=== PATIENT | female | born 1990 | race Caucasian/White ===

== ENCOUNTER 2019-01-04 19:24 | Inpatient (IN) | payer MEDICAID ==
[~2019-01-04] VITALS: Ht 175.3 cm; Wt 110.0 kg
--- NOTE | ~2019-01-04 | OP ---
PATIENT NAME: NEREIDA LENZ MEDICAL RECORD: [id number] :89 LOCATION:[facility].1274 ADMISSION DATE:01/04/19 SURGEON: CANDICE KHAN DO DATE OF OPERATION: 01/06/2019 PREOPERATIVE DIAGNOSIS: Nonreassuring heart tracing. POSTOPERATIVE DIAGNOSIS: Nonreassuring heart tracing. PRIMARY SURGEON: Candice Khan DO ANESTHESIA: Jeffery ALEX [place] PROCEDURE: Primary low transverse section via Pfannenstiel incision. FINDINGS: Viable male , weight 8 pounds 12 ounces, Apgars 8 and 9, born at 9:23 a.m. Normal-appearing uterus, bilateral fallopian tubes, and bilateral ovaries. SPECIMENS: Placenta and cord. ESTIMATED BLOOD LOSS: 800 cc. IV fluids: 1200 cc. URINE OUTPUT: 175 cc clear/dark urine. COMPLICATIONS: None. CONDITION: Stable. DESCRIPTION OF PROCEDURE: The risks, benefits, alternatives, and indications of the procedure were discussed with the patient. She voiced understanding of the procedure and wished to proceed. She was taken to the OR, where spinal anesthesia was administered and found to be adequate. She was placed in the dorsal supine position with leftward tilt. She was prepped and draped in the normal sterile fashion. Pfannenstiel skin incision was made with the scalpel and brought down to the underlying layer of the fascia with a scalpel. The fascia was incised in the midline and extended laterally. The fascia was bluntly dissected off the rectus muscle superiorly and inferiorly. The rectus muscle was in the midline down to the level of the peritoneum. The peritoneum was identified and noted to be free of adherent bowel and entered bluntly. Peritoneum was further with gentle traction. The bladder blade was inserted. The uterus was incised in a transverse fashion in lower uterine segment. The incision was extended with cephalad caudad traction. The 's head was brought to the incision. The delivered without difficulty. Mouth and nose were suctioned. Cord was clamped and cut, and the was handed off to waiting pediatricians. The placenta was manually removed. The uterus was exteriorized and a moist lap was used to assure complete removal of placenta membranes. The hysterotomy was closed with 0 Vicryl in a running locked fashion with good hemostasis noted. Uterus, tubes, and ovaries were noted to be normal and returned back to the abdominal cavity. A moist laparotomy sponge was used to assure complete removal of blood clots and fluid from the abdominal cavity. The hysterotomy was reinspected and noted to be hemostatic. The rectus muscle was closed with 2-0 Monocryl in a running OPERATIVE REPORT [id number] YOANNA,NEREIDA fashion with good hemostasis. The fascial incision was closed with 0 Vicryl in a running fashion with good hemostasis. The subcutaneous fat was closed with 2-0 plain in a running fashion with good hemostasis. The skin was closed in a subcuticular fashion with 3-0 Monocryl and Dermabond dressing. All needle, lap, sponge, and instrument counts were correct times 2. The patient tolerated the procedure well. She was taken to recovery room in stable condition. TRANSINT:[id number] Voice Confirmation ID: [id number] DOCUMENT ID: [id number] CANDICE KHAN DO CC: [id number] DICTATION DATE: 01/06/19 1016 DRILL OPERATOR PNEUMATIC: 01/06/19 1324 ADM IN [facility] [address] [id number]
[2019-01-04 20:19] LABS: HEMATOCRIT 37.3 % (42.0-54.0); HEMOGLOBIN 12.9 g/dL (13.5-17.5); MCH 30.2 pg (26.0-34.0); MCHC 34.6 g/dL (31.0-37.0); MCV 87.4 fL (80.0-100.0); MEAN PLATELET VOLUME 11.4 fL (7.4-10.4); RBC 4.27 10x6/uL (4.20-6.10); RDW 14.4 % (11.5-14.5); WBC 9.7 10x3/uL (4.8-10.8)
[2019-01-04 20:23] VITALS: BP 116/75; Ht 175.3 cm; Wt 110.0 kg
[2019-01-04 21:37] LABS: APPEARANCE CLEAR (CLEAR); BILIRUBIN NEGATIVE (NEGATIVE); COLOR YELLOW (YELLOW); GLUCOSE NEGATIVE (NEGATIVE); KETONE NEGATIVE (NEGATIVE); NITRITE NEGATIVE (NEGATIVE); PROTEIN NEGATIVE (NEGATIVE); SPECIFIC GRAVITY 1.025 (1.005-1.020); UROBILINOGEN NORMAL (NORMAL)
[2019-01-04 21:44] LABS: UDS - AMPHET NEGATIVE QUAL (NEGATIVE); UDS - BARB NEGATIVE QUAL (NEGATIVE); UDS - BENZO NEGATIVE QUAL (NEGATIVE); UDS - COCAINE NEGATIVE QUAL (NEGATIVE); UDS - OPIATE NEGATIVE QUAL (NEGATIVE); UDS - PCP NEGATIVE QUAL (NEGATIVE); UDS - THC POSITIVE QUAL (NEGATIVE)
[2019-01-06 07:13] LABS: RAPID PLASMA REAGIN Non Reactive (Non Reactive)
--- NOTE | 2019-01-06 10:40 | NUR ---
SEE PAPER CHART FOR ALL POST-OP VITALS FOR THIS SHIFT.
--- NOTE | 2019-01-06 10:40 | NUR ---
PT RCVD VIA BED TO ROOM 1274 FROM RECOVERY. PT AAOx3, RATES PAIN APPROX 5-6 AT THIS TIME. PITOCIN INFUSING ORDERED TO PT'S RIGHT HAND PIV. LARGE OCCLUSIVE DRESSING OVER LOW TRANSVERSE INCISION IS C/D/I. FF, ML, U/1. SMALL RUBRA LOCHIA NOTED TO PERIPAD, NO CLOTS. PERIPAD CHANGED. MADRID CATH DRAINING DARK YELLOW URINE TO BEDSIDE DRAINAGE, 100ML EMPTIED FROM UROMETER. PT DENIES NAUSEA, GIVEN LARGE ICE WATER AND ENCOURAGED TO DRINK. ICE PACK TO INCISION SITE. SCD'S ON LE BILAT AND ON PUMP. PT INSTRUCTED ON USE OF INCENTIVE SPIROMETER/COUGH AND DEEP BREATHING. RETURN DEMONSTRATES x 3 WITH GOOD EFFORT. PT ENCOURAGED. PT REQUESTING "SOMETHING FOR PAIN SOON." WILL ADMIN ORDERED. SRUx2, CL IN REACH.
[2019-01-06 10:42] VITALS: BP 121/81
--- NOTE | 2019-01-06 11:20 | NUR ---
THIS RN TO ROOM FOR PT CHECK. PT SITTING UP IN BED, SIPPING ICE WATER. PT HAS QUESTIONS ABOUT , INSTRUCTED ON SUPPLY AND DEMAND, AND BURPING . UNDERSTANDING VERBALIZED, PT STATES SHE MAY OFFER OPPOSITE BREAST AFTER FAMILY MEMBER IS FINISHED HOLDING . PT DENIES NEEDS. SRUx2, CL IN REACH. SIG OTHER AT BEDSIDE.
--- NOTE | 2019-01-06 11:45 | NUR ---
THIS RN TO ROOM FOR FUNDAL CHECK. FF, ML, U/1. SMALL RUBRA LOCHIA, NO CLOTS. PT REQUESTING PAIN MEDICATION AND WATER, RATES PAIN 7/10 AT INCISION. WILL ADMIN ORDERED.
--- NOTE | 2019-01-06 13:30 | NUR ---
THIS RN TO ROOM FOR PT CHECK. PT C/O PAIN NOT RELIEVED WITH PREV DOSE OF MORPHINE, STATES IT "NEVER GOT BELOW A 6 OR 7" ON A PAIN SCALE. WILL NOTIFY
--- NOTE | 2019-01-06 13:49 | NUR ---
DR HILL PHONED AND REPORT GIVEN ON PT C/O UNRELIEVED PAIN AFTER RECEIVING 4MG MORPHINE IV. ORDER RCVD TO ADMIN 2MG MORPHINE NOW, AND PT MAY HAVE 6MG MORPHINE Q4H PRN PAIN RATED 7-10 NOW INSTEAD OF PREVIOUSLY ORDERED 4MG DOSE, TO BE TIMED FROM FIRST 4MG DOSE.
--- NOTE | 2019-01-06 14:35 | NUR ---
PT ADMIN ORDERED DOSE OF 2MG MORPHINE IV x1, SEE EMAR FOR DOC.
--- NOTE | 2019-01-06 14:35 | NUR ---
THIS RN TO ROOM FOR PT CHECK. FF, ML, U/1. SMALL RUBRA LOCHIA WITHOUT CLOTS. URINE OUTPUT NOTED TO BE DECREASED AND DARKER IN ANNIE COLOR, 120ML EMPTIED FROM UROMETER. WILL NOTIFY OF URINE OUTPUT. PT PROVIDED WITH ANOTHER LARGE GLASS OF ICE WATER AND ENCOURAGED TO DRINK.
--- NOTE | 2019-01-06 15:43 | NUR ---
DR HILL INFORMED OF DECREASED URINE OUTPUT AND DARKER COLOR. ORDER RCVD TO D/C PITOCIN IF FUNDUS IS FIRM AND NORMAL LOCHIA FLOW, AND REPLACE MAIN LINE FLUIDS WITH LR AT 125ML/H. PITOCIN D/C'D ORDERED, LR HUNG AT 125ML/H. PT C/O PAIN AND REQUESTING MORPHINE, RATING PAIN 7/10 AT THIS TIME. WILL ADMIN ORDERED.
--- NOTE | 2019-01-06 15:52 | NUR ---
PT ADMIN MORPHINE ORDERED, SEE EMAR FOR DOC.
--- NOTE | 2019-01-06 17:12 | NUR ---
THIS RN TO ROOM FOR TORADOL ADMIN ORDERED, SEE EMAR FOR DOC. PT RATING PAIN 8/10 AT THIS TIME, STATE MORPHINE DID NOT HELP. 120ML DARK YELLOW URINE EMPTIED FROM UROMETER. WILL NOTIFY OF PT'S REQUEST FOR DIFFERENT PAIN MED AND THAT SHE WANTS TO EAT.
--- NOTE | 2019-01-06 17:16 | NUR ---
FF, ML, U/1. SMALL RUBRA LOCHIA, NO CLOTS. PERIPADS CHANGED.
--- NOTE | 2019-01-06 17:38 | NUR ---
DR HILL ON UNIT, REPORT GIVEN ON PT'S REQUESTS. ORDERS RECEIVED TO SWITCH TO PO MEDS, AND PT MAY AMBULATE AND HAVE REGULAR DIET AT 12 HOURS POST-OP.
--- NOTE | 2019-01-06 17:54 | NUR ---
PT UPDATED ON POC, STATES HER PAIN IS BETTER SINCE TORADOL ADMIN. PT AT THIS TIME, SMILING, DENIES NEEDS. SRUx2, CL IN REACH. WILL CONT TO MONITOR.
[2019-01-06 19:31] VITALS: BP 113/69
--- NOTE | 2019-01-06 19:31 | NUR ---
PT. AWAKENED FOR VITAL SIGNS AND ASSESSMENT. PT. AWAKENS INFORMING THIS NURSE AT 8P SHE IS TO GET MORE PAIN MEDICATION AND AGAIN AT 9:30 SHE IS SUPPOSE TO GET "A LOT MORE STUFF". INFORMED PT. THAT THIS NURSE WOULD REVIEW HER ORDERS. ABD. DRESSING DRY AND INTACT. LOCHIA RUBRA MOD AND MOSHE PAD CHANGED. IV NOTED IN RT HAND AREA. IV OF LR UP AND INFUSING AT 125CC/HR VIA PUMP. SCDS ON AND FUNCTIONAL. BREATH SOUNDS CLEAR AND BOWEL SOUNDS AUDIBLE. MADRID PATENT AND DRAINING WITH 125CC DARK URINE IN URINE METER. ENCOURAGED PT. TO COUGH AND DEEP BREATHE AND PT. GAVE RETURN DEMONSTRATION. HANDED PT. HER INCENTIVE SPIROMETER AND SHE ACHIEVED UP TO 3000 ON METER. INTERMITTENTLY PT. DOSING.
--- NOTE | 2019-01-06 20:08 | NUR ---
REQUESTING ORAL PAIN MEDICATION. CO PAIN AT INCISION AND MID LESTER. STATES HAS BEEN PASSING GAS. RATES PAIN A 6 ON SCALE OF 0-10. MED GIVEN.
--- NOTE | 2019-01-06 21:04 | NUR ---
IV STOPPED TO SALINE LOCK. IV SITE WITH SOME EDEMA AND PT. STATES IS PAINFUL. IV DISCONTINUED WITH INTACT CATH. TIP NOTED. DILUTED BLOOD NOTED COMING FROM IV SITE. PRESSURE HELD ON SITE UNTIL LEAKAGE STOPPED AND BANDAID APPLIED. INFORMED PT. WOULD BE TO ROOM SOON TO DISCONTINUE CATH. PTTip SCOTT ANSWERED.
--- NOTE | 2019-01-06 21:06 | NUR ---
INQUIRED ABOUT PAIN SCORE AFTER MEDICATION. PT. TOUCHES ABD. AND APPEARS TO BE PUSHING AND STATES "IT IS A 5". INFORMED PT. THAT INCISIONAL AREA WILL BE TENDER AND PAINFUL WHEN PRESSURE IS APPLIED. INFORMED THAT SINCE ABD. MUSCLES CUT, TURNING FROM SIDE TO SIDE WILL ALSO BE UNCOMFORTABLE. PT. STATES UNDERSTANDING TO ALL.
--- NOTE | 2019-01-06 21:52 | NUR ---
PT. SITTING UP IN BED WITH HOB AT 45 DEGREES EATING SANDWICH BROUGHT FROM OUTSIDE HOSPITAL. CHEERFUL. INFORMED PT. THAT THIS NURSE HAD COME TO REMOVE MADRID BUT WOULD WAIT UNTIL SHE FINISHED EATING AND PT. STATED THAT SHE APPRECIATED THAT. PT. WILL CALL WHEN EATING IS COMPLETED. MALE IN ROOM WITH PT.
--- NOTE | 2019-01-06 22:05 | NUR ---
MADRID CATH DISCONTINUED WITH ADDITIONAL 150CC IN URINE METER. PT. UP TO SIT ON SIDE OF BED WITH MINIMAL ASSISTANCE. ASSISTED WITH DEPENDS UNDERWEAR PT. BROUGHT TO HOSPITAL WITH HER. PT.HAD TAKEN OFF SCDS PRIOR TO THIS NURSE ENTERING ROOM. PT. DESIRES TO WALK ABOUT IN ROOM. GAIT STEADY AND STANDING UPRIGHT. FOB IN ROOM. INFANT IN OPEN CRIB BESIDE SOFA AND FOB. PT. ASKING ABOUT HER PAIN MEDS AND WHEN SHE WILL GET THEM. INFORMED THAT THEY ARE ORDERED PRN EVERY 4 HOURS SO SHE WILL NEED TO CALL WHEN SHE NEEDS MED. PT. STATED UNDERSTANDING AND STATES THAT SHE WILL PROBABLY CALL AT MIDNIGHT. PATRIA OSMAN SCANT TO MOD. INFORMED PT. ABOUT [place] HAT ON COMMODE AND PURPOSE FOR IT. PT. STATED UNDERSTANDING. INFORMED THIS NURSE VERY WILLING TO HELP HER GET UP TO BATHROOM ANY TIME SHE FEELS SHE NEEDS ASSISTANCE BUT IF SHE DESIRES SHE CAN GET HERSELF UP TO BATHROOM. PT. DESIRES TO REMAIN UP IN ROOM FOR A LITTLE LONGER. DISCUSSED SCDS AND ENCOURAGED PT. TO HAVE NURSE REPLACE THEM PRIOR TO HER GOING TO SLEEP.
--- NOTE | 2019-01-06 23:24 | NUR ---
AT PRESENT. RATES PAIN A 6 OF 10 ON PAIN SCALE. SCHEDULED MOTRIN GIVEN. CHEERFUL. FOB REMAINS IN ROOM.
[2019-01-06 23:26] VITALS: BP 128/70
--- NOTE | 2019-01-07 00:25 | NUR ---
PT. CALLED REQUESTING PAIN MEDICATION. PT. UP IN ROOM. STATES SHE JUST VOIDED. 200CC NOTED IN [place] HAT. URINE REMAINS DARK IN MADRID BUT APPEARS BLOOD TINGED. ASSISTED PT. WITH ANOTHER DEPENDS TO PUT ON. FOB ON SOFA CONSOLING THAT IS IN OPEN CRIB AND FUSSY. PT. BACK TO BED AND SCDS REAPPLIED TO LOWER LEGS. CAUTIONED PT. TO REMEMBER THAT SCDS ARE ON LEGS PRIOR TO GETTING UP TO BATHROOM. PT. STATES UNDERSTANDING. PT. STATES PAIN REMAINS A 6 OF 10 AND IS INCISIONAL FROM BEING UP.
--- NOTE | 2019-01-07 01:20 | NUR ---
PT. AWAKE AND ATTEMPTING TO CONSOLE INFANT. STATES HER PAIN IS A 4 OF 10 ON PAIN SCALE AND SHE FEELS MUCH BETTER. DISCUSSED WITH PT. THAT WITH LARGE HE MIGHT WANT TO EAT SOONER THAN 3 HOURS AND HE HAS BEEN CRYING AND ROOTING FOR A WHILE. PT. STATES THAT SHE FELT THE SAME AND WILL OFFER BREAST AGAIN. FOB ASLEEP ON SOFA.
--- NOTE | 2019-01-07 01:52 | NUR ---
PT. LYING IN BED ON BACK WITH BESIDE HER. INFANT SWADDLED AND WITH HAT ON. INFORMED PT. THAT NBN NURSE WILL COME SOON TO CHECK BLOOD SUGAR ON INFANT PRIOR TO FEEDING. PT. STATES UNDERSTANDING. FOB ASSISTING PT. WITH INFANT.
--- NOTE | 2019-01-07 03:27 | NUR ---
LYING IN LT TILT WITH EYES CLOSED. RESPIRATIONS UNLABORED. IN OPEN CRIB BESIDE SOFA WHERE FOB IS SLEEPING. WITH EYES CLOSED AND RESPIRATIONS UNLABORED AT THIS TIME.
--- NOTE | 2019-01-07 04:50 | NUR ---
LYING ON BACK WITH EYES CLOSED. RESPIRATIONS REGULAR.
--- NOTE | 2019-01-07 05:12 | NUR ---
AWAKENED FOR VITAL SIGNS AND MOTRIN ADMINISTRATION. IN NBN.
[2019-01-07 05:14] VITALS: BP 112/63
--- NOTE | 2019-01-07 05:15 | NUR ---
PT. AWAKENED FREQUENTLY DURING PERIOD OF GETTING HER VITAL SIGNS AND CHECKING ABD INCISION AND LOCHIA. ABD. DRESSING DRY AND INTACT. LOCHIA RUBRA SCANT TO MOD. DENIES FEELING URGE TO VOID AT THIS TIME. INFANT CURRENTLY IN NBN AND PT. AND FOB BOTH SLEEPING.
--- NOTE | 2019-01-07 06:33 | NUR ---
PT. UP TO BATHROOM AND VOIDED 500CC URINE. URINE LESS DARK THIS VOID. REQUESTING PAIN MED AFTER AMBULATION.
--- NOTE | 2019-01-07 06:39 | NUR ---
PT. REQUESTING PAIN MED. RATES PAIN A 6 OF 10 ON PAIN SCALE. MED. GIVEN ORDERED. AT PRESENT. FOB HELPING GET BABY LATCHED.
[2019-01-07 06:44] LABS: BASOPHILS 0.1 % (0-2); EOSINOPHILS 0.5 % (0-7); HEMATOCRIT 31.2 % (36.0-48.0); HEMOGLOBIN 10.1 g/dL (12-16); IMMATURE GRANULOCYTES 0.3 % (0-5); LYMPHOCYTES 13.4 % (15-50); MCH 30.1 pg (26.0-34.0); MCHC 32.4 g/dL (31.0-37.0); MCV 92.9 fL (80.0-100.0); MEAN PLATELET VOLUME 11.1 fL (7.4-10.4); MONOCYTES 9.5 % (2-11); NEUTROPHILS 76.2 % (40-80); RBC 3.36 10x6/uL (4.00-5.40); RDW 14.7 % (11.5-14.5); WBC 10.8 10x3/uL (4.8-10.8)
[2019-01-07 06:46] LABS: PLATELET COUNT 142 10x3/uL (130-400)
--- NOTE | 2019-01-07 07:18 | NUR ---
ASSUMED CARE OF THIS PATIENT. SITTING UP IN BED HOLDING INFANT. WILL COMPLETE SHIFT ASSESSMENT AFTER BREAKFAST. DENIES NEEDING ANYTHING AT THIS TIME. SIDE RAILS UP X 2, CALL LIGHT IN REACH.
[2019-01-07 07:39] VITALS: BP 140/84
[2019-01-07 08:28] VITALS: BP 118/62
--- NOTE | 2019-01-07 08:30 | NUR ---
TO ROOM TO COMPLETE SHIFT ASSESSMENT. GETTING READY TO BREASTFEED INFANT. ASKED ABOUT RECEIVING REGULAR DIET, HAD RECEIVED CLEAR LIQUIDS FOR BREAKFAST. WILL ENSURE PT GETS REGULAR DIET ORDERED. WILL COMPLETE SHIFT ASSESSMENT AFTER AND BREAKFAST. DENIES NEEDING ANYTHING. CURRENT INCISIONAL PAIN 2-3/1O. SAYS ITS WORSE WHEN GETTING OOB. EXPLAINED THAT THIS IS EXPECTED. DISCUSSED POC FOR THE DAY TO INCLUDE SHOWER AND AMBULATION.
--- NOTE | 2019-01-07 10:00 | NUR ---
DR ELIZALDE VISITED PATIENT AND REMOVED LOWER ABD DRESSING. SHIFT ASSESSMENT COMPLETED. WILL GIVE PAIN MEDICATION WHEN IT IS DUE. SAYS SHE HAD INCREASED PAIN WHEN DRESSING WAS REMOVED. WAS SHAKING, SHAKING STOPPED WITH FOCUSED BREATHING. FOB AND IN ROOM. FRESH WATER GIVEN. REGULAR DIET AT BEDSIDE. ATE 75% UP AD HARRIS TO VOID. SAYS SHE MAY GET TO GO HOME THIS PM IF EVERYTHING IS OK. SIDE RAIL UP X 2, CALL LIGHT IN REACH.
--- NOTE | 2019-01-07 10:27 | NUR ---
PERCOCET 10 MG GIVEN FOR 7/10 INCISIONAL PAIN. PLANS SHOWER AFTER MEDICATION DECREASES PAIN. DESIRES TO GO HOME TODAY IF INFANT DISCHARGED. HAS BEEN UP VOIDING AND HAS PASSED GAS. NON SMOKER. NO RECORED OF TDAP. WILL OFFER WHILE IN HOSPITAL. SIDE RAILS UP X 2, CALL LIGHT IN REACH.
--- NOTE | 2019-01-07 11:22 | NUR ---
VERBAL AND WRITTEN INFORMATION GIVEN ON TDAP. DESIRES BEFORE DC HOME. NOW CONSIDERING WAITING UNTIL TOMORROW FOR DISCHARGE. HAND TUBE BENDER IN ROOM TALKING TO PATIENT. ITEMS LEFT IN ROOM FOR SHOWER.
--- NOTE | 2019-01-07 12:54 | NUR ---
SITTING UP IN BED EATING LUNCH AND . HAS DECIDED TO STAY UNTIL TOMORROW. FOB IN ROOM, SIDERAILS UP X 2, CALL LIGHT IN REACH. HAS SHOWERED. WILL CHANGE LINEN WHEN NEXT OOB.
--- NOTE | 2019-01-07 12:55 | NUR ---
SITTING UP IN BED EATING LUNCH. VISITOR IN ROOM. SAYS HER PAIN IS BETTER, NOW 2/10 ACHING IN INCISION AREA. NO REQUESTS. CALL LIGHT IN REACH, SIDE RAILS UP X 2. INSTRUCTED TO CALL FOR ASSISTANCE NEXT TIME SHE NEEDS TO GET UP TO ASSESS STABILITY. VERBALIZED UNDERSTANDING.
[2019-01-07 13:15] VITALS: BP 117/73
--- NOTE | 2019-01-07 15:15 | NUR ---
SITTING UP IN BED. RETURNED TO ROOM FROM NURSERY. INFANT AND MATERNAL ID BANDS VERIFIED. NO REQUESTS AT THIS TIME. FOB IN ROOM. TO CALL IF ANYTHING IS NEEDED.
--- NOTE | 2019-01-07 15:42 | NUR ---
SITTING UP TALKING ON CELL PHONE, INFANT IN ROOM WITH FOB. SAYS HER INCISIONAL PAIN IS 5/10 BUT DECLINES PAIN MEDICATION AT THIS TIME. SAYS SHE WILL CALL WHEN READY FOR SOME. SCHEDULED MOTRIN IS DUE AT 1700.
--- NOTE | 2019-01-07 16:33 | NUR ---
SITTING UP IN BED INFANT. TEARFUL, C/O THROBBING HEADACHE AND ABDOMINAL PRESSURE PAIN. PERCOCET 10 MG GIVEN PO WITH SCHEDULED MOTRIN. BP 140/70. WILL RECHECK AFTER PAIN MEDICATION IS EFFECTIVE. ENCOURAGED PT TO DEEP BREATH AND RELAX. DISCUSSED SOMETIMES THESE ARE PP FEELINGS. STATES "I'M SO TIRED". OFFERED TO TAKE INFANT TO NURSERY AFTER SHE FINISHES BREAST FEEDING, ENCOURAGED TO THEN EAT DINNER AND TRY TO NAP FOR NEXT COUPLE OF HOURS. FOB INFANT IN ROOM. SUPPORTIVE. PT WILL CALL WHEN DONE .
--- NOTE | 2019-01-07 16:54 | NUR ---
INFANT TO NURSERY. REGULAR DIET SERVED. FOB IN ROOM.
--- NOTE | 2019-01-07 17:03 | NUR ---
SAYS SHE IS FEELING BETTER BUT CANNOT EAT THE DINNER SERVED. PARTNER IS GOING OUT TO GET HER FOOD OF [employer].
--- NOTE | 2019-01-07 18:20 | NUR ---
CURRENTLY SLEEPING ON RIGHT SIDE. RESPIRATIONS EVEN. VISITOR X 1 IN ROOM. INFANT IN NURSERY. SIDERAILS UP X 2, CALL LIGHT IN REACH.
--- NOTE | 2019-01-07 19:19 | NUR ---
INFANT PRESENTLY IN NBN. PT. LYING ON BACK WITH EYES CLOSED AND UNLABORED RESPIRATIONS. LIGHTS IN ROOM DIMMED WHEN THIS NURSE ENTERED. DID NOT AWAKEN TO THIS NURSE IN ROOM. WILL DELAY ASSESSMENT UNTIL PT. AWAKENS.
--- NOTE | 2019-01-07 20:20 | NUR ---
FOB TO DESK AND RELATING THAT HE FEELS THAT HE NEEDS TO LEAVE TONIGHT TO GO HOME AND GET SOME SLEEP SO HE WOULD BE ABLE TO HELP WHEN SHE GOES HOME. CONCERNED ABOUT HER NEEDING HELP TONIGHT. REASSURED FOB THAT THIS NURSE WOULD BE AVAILABLE TO HELP PT. IF ANYTHING NEEDED. ENCOURAGED FOB TO TALK WITH PT. ABOUT SENDING INFANT TO NBN IN [place] SO SHE CAN ALSO REST. FOB STATES HE WILL ENCOURAGE WITH PT.
[2019-01-07 20:34] VITALS: BP 121/80
--- NOTE | 2019-01-07 20:46 | NUR ---
BACK FROM BATHROOM. HOLDING . DISCUSSED POC THAT SHE CAN SLEEP SOME TONIGHT IN [place]WE[place] FEED[place]. PT. AGREEABLE.
--- NOTE | 2019-01-07 21:12 | NUR ---
PT. CALLS AND REQUEST TO NURSERY UNTIL NEXT FEEDING. FOB HAS RETURNED HOME TO SLEEP THE NIGHT SO WE WILL BE BETTER HELP TO PT. ON DISCHARGE. PT. RELATES THAT SHE IS PAIN FREE. TO NBN REQUESTED. LIGHTS DIMMED IN ROOM PER PT. REQUEST.
--- NOTE | 2019-01-07 21:13 | NUR ---
PT. AGREEABLE TO TAKE SCHEDULED MOTRIN WHEN SHE IS AWAKE AND NOT TO BE AWAKENED FOR MED.
--- NOTE | 2019-01-07 23:01 | NUR ---
LYING ON BACK WITH EYES CLOSED. SNORING AUDIBLE. LIGHTS IN ROOM DIMMED WITH BATHROOM LIGHT REMAINING ON.
--- NOTE | 2019-01-08 00:14 | NUR ---
INFANT TO PATIENT FOR .
[2019-01-08 00:44] VITALS: BP 123/69
--- NOTE | 2019-01-08 00:44 | NUR ---
PT. COMPLETED AND REQUESTED INSTRUCTION ON HOW TO BURP HER . DEMONSTRATION GIVEN AND PT. GAVE RETURN DEMONSTRATION. VITAL SIGNS OBTAINED. INFANT RETURNED TO N PER REQUEST OF PT. ASLEEP IN OPEN CRIB.
--- NOTE | 2019-01-08 01:45 | NUR ---
LYING ON BACK WITH EYES CLOSED. RESPIRATIONS UNLABORED.
--- NOTE | 2019-01-08 04:01 | NUR ---
INFANT TO ROOM FOR . ID BAND OF AND MOTHER MATCHED.
--- NOTE | 2019-01-08 04:58 | NUR ---
PT. CALLED TO REPORT THAT SHE WILL KEEP INFANT WITH HER. STATES SHE HAD SLEPT WELL AND FEELS "MUCH BETTER". BACK TO BREAST. DENIES FURTHER NEEDS.
--- NOTE | 2019-01-08 06:30 | NUR ---
PT. IN BATHROOM AND FRIEND CAME TO DESK TO REPORT PT. PASSED CLOT. INTO BATHROOM AND A CLOT APPROX 4 CM IN DIAMETER LYING ON FLOOR. LOCHIA RUBRA NOT EXCESSIVE AT THIS TIME. REASSURED PT.
--- NOTE | 2019-01-08 06:34 | NUR ---
INFANT IN OPEN CRIB AT BEDSIDE. SUCKING ON PACIFIER. PT. LYING ON BACK WITH UNLABORED RESPIRATIONS. AWAKENED WHEN THIS NURSE ENTERED ROOM.
[2019-01-08 07:21] VITALS: BP 114/78
--- NOTE | 2019-01-08 07:21 | NUR ---
ASSUMED CARE OF THIS PT SITTING UP IN BED GETTING READY TO FEED INFANT. VS OBTAINED. WILL COMPLETE SHIFT ASSESSMENT AFTER FEEDING AND BREAKFAST. DENIES NEEDING ANYTHING AT THIS TIME. SIDE RAILS UP X 2, CALL LIGHT IN REACH.
--- NOTE | 2019-01-08 07:35 | NUR ---
SAYS SHE THINKS BABY'S NOSE IS STUFF. INSTRUCTED ON USE OF BULB SYRINGE TO CLEAR NARES. SMALL AMOUNT OF BROWN MUCUS REMOVED FROM NARES. NO FURTHER REQUESTS. BREAKFAST TRAY AT BEDSIDE.
--- NOTE | 2019-01-08 09:32 | NUR ---
SHIFT ASSESSMENT COMPLETED. SCHEDULED MOTRIN GIVEN AND PEROCET 5 MG GIVEN FOR RELIEF OF INCISIONAL PAIN 09/19. DR ELIZALDE VISITED. PT TO BE DC'D HOME TODAY. GETTING READY TO AMBULATE IN [place]. INFANT IN CRIB. FOB IN ROOM.
--- NOTE | 2019-01-08 10:40 | NUR ---
SITTING UP IN BED TALKING TO FOB. SAYS HER PAIN IS BETTER, NOW 4/10 PRESSURE ACHING. DENIES NEEDING ANYTHING. DESIRES TDAP BEFORE DC HOME. IN ROOM. TO CALL IF ANYTHING IS NEEDED.
--- NOTE | 2019-01-08 12:36 | NUR ---
SITTING UP ON COUCH HOLDING . READY TO GO HOME. WAITING ON DC. DENIES ANY PROBLEMS WITH PAIN. TO CALL IF ANYTHING IS NEEDED.
--- NOTE | 2019-01-08 14:27 | NUR ---
SITTING UP IN BED HOLDING . DENIES NEEDING ANYTHING. READY TO GO HOME. WAITING ON FORENSIC SPECIALIST TO MAKE ROUNDS AND DC . PT TO CALL IF ANYTHING IS NEEDED.
--- NOTE | 2019-01-08 15:16 | NUR ---
REQUESTED PAIN MEDICATION FOR 5-6/10 ABD THROBBING PRESSURE. PERCOCET 5 MG AND SCHEDULE MOTRIN 600 MG GIVEN PO. TDAP WAS ALSO GIVEN IM IN LEFT DELTOID WITHOUT DIFFICULTY. DC INSTRUCTIONS REVIEWED TO INCLUDE POST OP CARE, PP DEPRESSION, S&S INFECTION, DANGER SIGNS, MEDICATION ADMINISTRATION, BREASTCARE/ AND FOLLOW-UP. VERBALIZED UNDERSTANDING. NO SPECIFIC QUESTIONS. VISITORS X 3 IN ROOM WITH . WILL DC WHEN DC'D.
[2019-01-08] MEDS ORDERED: MOTRIN600 MG PO (15:31)
[2019-01-08] MEDS ORDERED: PERCOCET 5-3251 TAB PO (15:31)
--- NOTE | 2019-01-08 16:08 | NUR ---
DC'D VIA WHEELCHAIR TO CAR. IN [place]. HAS WRITTEN INSTRUCTIONS AND PRESCRIPTIONS. ALL BELONGINGS REMOVED FROM ROOM. FOB DRIVING CAR.
== END 2019-01-08 16:08 | disposition home or self-care (01) | DRG 788 ==
LOC: EDSEX 19:24 → D.LD 19:24
PROVIDERS: ADMIT Student in an Organized Health Care Education/Training Program; ATTEND Student in an Organized Health Care Education/Training Program
PROC: 3E0P7VZ Introduction of Hormone into Female Reproductive, Via Natural or Artificial Opening (ICD-10-PCS; 2019-01-05)
PROC: 3E033VJ Introduction of Other Hormone into Peripheral Vein, Percutaneous Approach (ICD-10-PCS; 2019-01-05)
PROC: 10D00Z1 Extraction of Products of Conception, Low, Open Approach (ICD-10-PCS; principal; 2019-01-06 08:00)
DX: O76 Abnormality in fetal heart rate and rhythm complicating labor and delivery (principal); Z3A.40 40 weeks gestation of pregnancy; Z37.0 Single live birth

== ENCOUNTER 2019-01-12 13:58 | Emergency (ER) | payer MEDICAID ==
[~2019-01-12] VITALS: Ht 175.3 cm; Wt 102.3 kg
[~2019-01-12 13:58] MED LIST: MOTRIN600 MG PO; PERCOCET 5-3251 TAB PO
[2019-01-12 14:08] VITALS: Ht 175.3 cm; Wt 102.3 kg
[2019-01-12 17:30] VITALS: BP 120/60
== END 2019-01-12 17:35 | disposition home or self-care (01) ==
LOC: D.ER 13:58
DX: O90.89 Other complications of the puerperium, not elsewhere classified (principal)